=== PATIENT | male | born 1955 | race Caucasian/White ===

== ENCOUNTER 2022-05-23 22:18 | Emergency (ER) | payer OTHER ==
[2022-05-24 01:25] LABS: HEMOGLOBIN 14.7 gm/dl (14.0-17.5); RED BLOOD COUNT 4.98 M/UL (4.20-5.50); WHITE BLOOD COUNT 21.4 K/UL (4.5-11.0)
[2022-05-24 01:45] LABS: BUN/CREATININE RATIO 20 (0-10)
== END 2022-05-24 05:22 | disposition short-term general hospital (02) ==
LOC: ER1 22:18
PROVIDERS: Physician Assistant
DX: R55 Syncope and collapse (principal); S72.142A Displaced intertrochanteric fracture of left femur, initial encounter for closed fracture; S51.812A Laceration without foreign body of left forearm, initial encounter; S00.03XA Contusion of scalp, initial encounter; D72.829 Elevated white blood cell count, unspecified; Z87.01 Personal history of pneumonia (recurrent); Z90.89 Acquired absence of other organs; F17.210 Nicotine dependence, cigarettes, uncomplicated; W01.10XA Fall on same level from slipping, tripping and stumbling with subsequent striking against unspecified object, initial encounter; Y92.009 Unspecified place in unspecified non-institutional (private) residence as the place of occurrence of the external cause; Z51.81 Encounter for therapeutic drug level monitoring; Z20.822 Contact with and (suspected) exposure to COVID-19
CPT/HCPCS: 0240U; 70450; 71045; 72125; 73502; 80053; 81001; 82550; 82553; 84484; 85025; 85610; 96374; 96375; 99285; J1170; J2405